=== PATIENT | female | born 1960 | race Caucasian/White ===

== ENCOUNTER 2017-07-24 13:04 | Emergency (ER) | payer BC ==
[~2017-07-24] VITALS: Ht 162.6 cm; Wt 74.0 kg
[~2017-07-24 13:04] MED LIST: PRED5TAB PO
[2017-07-24] MEDS ORDERED: aspirin 81mg tab.chew PO ONE (13:10)
[2017-07-24] MEDS ORDERED: LEVO125T8 PO (13:26)
[2017-07-24] MEDS ORDERED: VAL5T PO ×2 (13:26→15:02)
[2017-07-24] MEDS ORDERED: ATOR20TA PO (13:26)
[2017-07-24 13:28] LABS: BASOPHILS % (AUTO) 0.5 % (0-1); EOSINOPHILS # (AUTO) 0.1 X10'3 (0-0.9); EOSINOPHILS % (AUTO) 1.5 % (0-6); HEMATOCRIT 36.6 % (35.0-45.0); HEMOGLOBIN 12.9 g/dl (12.0-16.0); LYMPHOCYTES # (AUTO) 1.6 X10'3 (1.1-4.8); LYMPHOCYTES % (AUTO) 33.4 % (21-51); MEAN CORPUSCULAR HEMOGLOBIN 28.6 PG (27.0-31.0); MEAN CORPUSCULAR HGB CONC 35.2 % (33.0-36.5); MEAN CORPUSCULAR VOLUME 81.2 FL (78-98); MEAN PLATELET VOLUME 7.4 FL (7.4-10.4); MONOCYTES # (AUTO) 0.3 X10'3 (0-0.9); MONOCYTES % (AUTO) 5.6 % (2-12); NEUTROPHILS # (AUTO) 2.8 X10'3 (1.8-7.7); PLATELET COUNT 280 X10'3 (140-440); RED BLOOD COUNT 4.51 X10'6 (4.20-5.60); RED CELL DISTRIBUTION WIDTH 13.8 % (11.5-14.5); WHITE BLOOD COUNT 4.7 X10'3 (4.5-11.0)
[2017-07-24 13:52] LABS: ALANINE AMINOTRANSFERASE 32 U/L (12-78); ALBUMIN 4.2 G/DL (3.4-5.0); ALBUMIN/GLOBULIN RATIO 1.2 (1.1-1.5); ALKALINE PHOSPHATASE 75 IU/L (46-116); ANION GAP 9 (8-16); ASPARTATE AMINO TRANSFERASE 19 U/L (10-37); BILIRUBIN,TOTAL 0.3 MG/DL (0.1-1.0); BLOOD UREA NITROGEN 12 MG/DL (7-18); BUN/CREATININE RATIO 15.6 (6.6-38.0); CALCIUM 9.5 MG/DL (8.5-10.1); CHLORIDE 107 MMOL/L (99-107); CREATININE 0.77 MG/DL (0.40-0.90); GLUCOSE 88 MG/DL (70-104); MAGNESIUM 2.2 MG/DL (1.5-2.4); POTASSIUM 4.2 MMOL/L (3.5-5.1); SODIUM 145 MMOL/L (135-145); TOTAL CARBON DIOXIDE 28.6 MMOL/L (24-32); TOTAL PROTEIN 7.8 G/DL (6.4-8.2); eGFR 78 ML/MIN
[2017-07-24] MEDS ORDERED: VALA100027 PO (14:49)
[2017-07-24] MEDS ORDERED: PRED20TA PO (14:49)
[2017-07-24 15:09] VITALS: BP 169/87
== END 2017-07-24 15:11 | disposition home or self-care (01) ==
LOC: ER 13:05
DX: G51.0 Bell's palsy (principal); R07.89 Other chest pain; I10 Essential (primary) hypertension; E03.9 Hypothyroidism, unspecified
CPT/HCPCS: 36415; 71045; 80053; 83735; 83880; 84484; 85025; 93005; 99285

== ENCOUNTER 2025-02-09 10:45 | Inpatient (IN) | payer BC ==
[~2025-02-09] VITALS: Ht 162.6 cm; Wt 59.9 kg
[~2025-02-09 10:45] MED LIST changes: +ATOR20TA PO; +DIAZ5TAB22 PO; +LEVO125T8 PO; -PRED5TAB PO; +VALA100031 PO
--- NOTE | 2025-02-09 11:10 | ELECTROCARDIOGRAPH REPORT ---
[facility] Test Date: 2025-02-09 Test Time: 11:08:45 Pat Name: DOMINIQUE CUI Department: [facility]ER Patient ID: [facility]-[id number] Room: Gender: F [employer]: : 1960 Requested By: NED THOMASON Order Number: [id number] Reading MD: Measurements Intervals [place] Rate: 75 P: 81 W[place]: 165 QRS: 50 QRSD: 90 T: -8 QT: 401 QTc: 448 Interpretive Statements Sinus rhythm Borderline T abnormalities, inferior leads Please click the below link to view image of tracing.
--- NOTE | 2025-02-09 11:16 | RADIOLOGY REPORT ---
EXAM: CT CT STROKE ALERT INDICATION: Stroke Alert TECHNIQUE: CT of the head without intravenous contrast. Radiation Dose : 1. Head: CT Dose: CTDI volume is 59 mGy. Dose-length product 163 mGy*cm The dose indicators for CT are the volume Computed Tomography (CT) Dose Index (CTDIvol) and the Dose Length Product (DLP), and are measured in units of mGy and mGy-cm, respectively. These indicators are not patient dose, but values generated from the CT scanner acquisition factors. The report includes radiation exposure data for exposures received during this examination. COMPARISON: None FINDINGS: There is no evidence of acute intracranial hemorrhage, extra-axial collection, mass effect, midline shift, herniation or hydrocephalus. The ventricles, sulci and cisterns are age appropriate. The pineda-white differentiation is intact. The visualized paranasal sinuses and mastoid air cells are clear. The surrounding soft tissues and osseous structures are unremarkable. IMPRESSION: No acute intracranial abnormality. Radiation optimization: All CT scans at this facility use at least one of these dose optimization techniques: automated exposure control? mA and/or kV adjustment per patient size (includes targeted exams where dose is matched to clinical indication)? or iterative reconstruction.
[2025-02-09 11:40] LABS: CREATININE 0.78 MG/DL (0.40-0.90); TOTAL CARBON DIOXIDE 27.6 MMOL/L (24-32); eCRCL 64 ML/MIN; eGFR 75 ML/MIN
[2025-02-09 11:42] LABS: APTT 28 SECONDS (22-32); INR 1.0 INR; MEAN PLATELET VOLUME 7.1 FL (7.4-10.4); RED CELL DISTRIBUTION WIDTH 14.5 % (11.5-14.5)
--- NOTE | 2025-02-09 11:49 | RADIOLOGY REPORT ---
AP portable chest CLINICAL INDICATION: Stroke Alert FINDINGS: Heart size is slightly prominent with a left ventricular configuration. The aorta is tortuous. No infiltrates or effusions. Mild degenerative changes in the spine IMPRESSION: 1. No acute cardiopulmonary pathology
[2025-02-09] MEDS: clopidogrel 300mg tablet PO ONE (11:56)
--- NOTE | 2025-02-09 12:37 | RADIOLOGY REPORT ---
CT CTA NECK/HEAD INDICATION: Stroke TECHNIQUE: CT angiography along with MIP and MPR images were obtained of the [place] of [place] arteries. CT angiography along with MIP and MPR images were obtained of the cervical carotid and vertebral arteries. All CT scans at this facility use dose modulation, iterative reconstruction, and/or weight based dosing when appropriate to reduce radiation dose to as low as reasonably achievable. 3-D postprocessing was performed on a separate workstation under radiologist supervision. IV CONTRAST: 100 mL of low osmolar intravenous iodinated contrast material was administered. COMPARISON: None FINDINGS: ANTERIOR CIRCULATION: Distal internal carotid arteries including the petrous, cavernous, and supraclinoid segments are patent bilaterally. Anterior cerebral arteries including the A1 and A2 segments are patent bilaterally. Anterior communicating artery patent without aneurysm formation. Middle cerebral arteries including the horizontal M1 and sylvian M2 are patent bilaterally. Congenitally absent versus hypoplastic posterior communicating arteries. POSTERIOR CIRCULATION: Posterior cerebral arteries are patent bilaterally. Vertebral arteries are codominant The intracranial segments of the vertebral arteries are patent bilaterally. The basilar artery is patent without aneurysm formation. The posterior inferior cerebellar arteries are patent bilaterally. CERVICAL VESSELS: The thoracic aortic arch is patent without evidence of aneurysmal dilatation or dissection. The right common carotid artery, carotid bulb, and cervical segment of the right internal carotid artery are patent The left common carotid artery, carotid bulb, and cervical segment of the left internal carotid artery are patent The cervical segments of the right vertebral artery are patent OTHER: The lung apices are clear. IMPRESSION: 1. No large vessel occlusion, aneurysmal dilatation, or dissection seen within the intracranial vessels. 2. No hemodynamically significant stenosis, aneurysmal dilatation, or dissection seen within the cervical vessels.
--- NOTE | 2025-02-09 12:49 | [facility] CONSULT REPORT ---
[facility] Procedure Note [facility] Procedure Note Consult [facility] Note # Demographics Consult Type: Acute Stroke Level 2 (4.5-24 hrs) Patient Location: Emergency Room First Name: DOMINIQUE Last Name: BASILIA Date of : 1960 Age: 64 Gender: Female Facility: [facility] Time of Initial Page (): 02/09/2025 11:08 First Contact with Site (): 02/09/2025 11:08 # HPI Chief Complaint: - vision changes History: 64yof with HTN who p/w R eye vision peripheral field changes. She says yesterday she was helping her daughter move and she began profusely sweating, she felt funny, and then felt that she lost R vision. Was only seeing half of people faces She also had a headache at that time. This has now resolved. SBP 190. Last Known Normal: - I have collected independent history specific to time last normal or last known well. We have collaborated with the provider and at this time, we have the most current timeline with the information that is available. 12:30PM yesterday afternoon # Scores Time of exam and NIHSS (): 02/09/2025 11:12 Level of Consciousness 1a: [0] = Alert; keenly responsive LOC Questions 1b: [0] = Answers both questions correctly LOC Commands 1c: [0] = Performs both tasks correctly Best Gaze 2: [0] = Normal Visual 3: [0] = No visual loss Facial Palsy 4: [0] = Normal symmetrical movements Motor Arm Left 5a: [0] = No drift Motor Arm Right 5b: [0] = No drift Motor Leg Left 6a: [0] = No drift Motor Leg Right 6b: [0] = No drift Limb Ataxia 7: [0] = Absent Sensory 8: [0] = Normal Best Language 9: [0] = No aphasia Dysarthria 10: [0] = Normal Extinction and Inattention 11: [0] = No abnormality NIHSS Total: 0 # Data Head CT: - no bleed - per radiologist read CTA Head: - no large vessel occlusion - per radiologist read # Assessment Impression: - Transient Ischemic Attack # Plan Thrombolytic/Intervention: NOT IV Thrombolysis or IA Intervention candidate Thrombolytic Exclusion: > 4.5 hours Intraarterial Exclusion: - clinical exam not consistent with presence of large vessel occlusion (LVO), c an reconsider if LVO found on vascular imaging Blood Pressure Management: Use labetolol 10-20mg IV PRN or nicardipine gtt to maintain BP parameters Target Blood Pressure: - SBP < 220 - DBP < 120 Imaging: (urgency: STAT): - CT Angiogram Head and CT Angiogram Neck AND call back with results if abnormal Imaging: (urgency: routine): - MRI Brain without contrast Diagnostic Test: - echo with bubble study Telemetry for a fib monitoring Therapy/Evaluation: - PT/OT evaluation - speech/swallow consultation - NPO until swallow evaluation Medication: - Plavix 300 mg PO x1 now, then 75 mg daily x 21 days + asa 81mg x 21 days, followed by monotherapy thereafter atorvastatin 80mg daily, goal LDL <70 Other: - If patient has any neurological deterioration please call me back immediately Additional Recommendations: - Avoid dehydration and relative hypotension - Risk factor modification, including smoking cessation and alcohol moderation if appropriate - Monitor glucose and correct as needed - If cryptogenic non-lacunar stroke on MRI, obtain outpatient cardiac monitoring for a fib - Call back for neurological deterioration Disposition: admit # Logistics Attestation of consult completion: The patient is located at: [facility]. Facility staff participated in the visit. I performed this telemedicine visit from my offsite office utilizing interactive 2 way audio and visual telecommunication technology at the request of the onsite emergency room provider. Total time spent in telemedicine encounter: I spent 23 minutes reviewing clinical data and/or imaging, obtaining history, examining the patient, communicating with the onsite care team, and in preparation of this report. # Demographics First Name: DOMINIQUE Last Name: BASILIA Facility: [facility] Neuro Consult Order placed for: Yes YEN ARAUJO MD Feb 09, 2025 12:49
--- NOTE | 2025-02-09 13:35 | Physician Documentation ---
History of Present Illness ~ Chief Complaint: Stroke Alert Stated Complaint: BLURRY VISION,HEADACHE Time Seen by MD: 10:50 Primary Medical Doctor: None Source: patient Mode of Arrival: POV Exam Limitations: no limitations HPI Patient presented secondary to stroke-like symptoms. She was seen and examined in triage. She complains that yesterday her right eye was completely black. She was looking at people and only able to see half of the face. While on the way to the emergency department her vision suddenly cleared but with remained blurry. Decided not to go to the emergency department at that time. Her vision remains blurry and she has a headache prompting her to come to the emergency department. States past medical history of hypertension was seen by Dr. De La Torre in the past for this. Her blood pressure improved with weight loss. She also had an elevated hemoglobin A1c which also improved with weight loss. 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 Currently, complaining of blurry vision in the right eye and headache in the anterior head described as ache. Medication Reconciliation Allergies: Coded Allergies: No Known Allergies (Unverified , 02/09/25) Scheduled Atorvastatin Calcium* (Lipitor*), 1 TABLET PO HS, (Reported) Levothyroxine Sodium (Levothyroxine Sodium), 1 TAB PO DAILY, (Reported) Valacyclovir HCl (Valacyclovir), 1 TAB PO Q8H Scheduled PRN Diazepam* (Valium*), 1 TAB PO DAILY PRN for for anxiety/agitation, (Reported) Past Medical History Past Medical History: *WARDROBE MISTRESS* (Rios's palsy), Hypertension, Hypothyroidism, Anxiety Past Surgical History: noncontributory Other Past Surgical History: Tubal ligation Smoking Status: Never smoker Alcohol Use: None Drug Use: none Lives with: Family Lives In: Home Occupation: employed Review of Systems ROS Patient complains of right-sided blurry vision with completely held blacked out vision yesterday. She complains of elevated blood pressure which is unusual for her as well as a headache. No sensory deficits. Normal strength. Otherwise, denies review of systems. Physical Exam Vital Signs: RN Vital Signs have been reviewed: Yes, Temperature: 97.9, Source: Oral, Heart Rate: 74, Respiratory Rate: 14, BP: 167/88, Pulse Oximetry: 98, Weight: 59.900 Oxygen Flow Rate: 0 Pulse Oximetry Reflects: adequate oxygenation General Appearance: alert, WD/WN Pupils/EOM/Fundus: PERRLA EENT: normal ENT inspection Neck: normal inspection, full range of motion Respiratory: lungs clear, normal breath sounds, no respiratory distress Chest: no accessory muscle use Cardiovascular: normal peripheral pulses, regular rate, rhythm, no murmur Gastrointestinal: normal palpation, non-tender, bowels sounds present Orientation / Memory / CN Exam: oriented x3, memory intact, facial asymmetry; No: abnormal pupil position, abnormal speech Motor / Sensory: no motor deficit, no sensory deficit, no pronator drift Coordination / Gait: normal finger to nose, normal gait, negative Romberg's sign Psychiatric: appropriate Skin: warm/dry, normal color Progress Progress Note Tele neurology consultation was obtained. Discussed with the neurologist. Recommend CTA of the head and neck and if vessels are okay admission for MRI and TTE with bubble study. Permissive hypertension for the next 24 hours allowing blood pressure up to 220/120. Recommended Plavix 300 mg x 1 and aspirin 81 mg Results/Orders Results/Orders Orders - JIM KAMINSKI NP Cta Neck/Head (02/09/25 12:18) Page Hospitalist (02/09/25 13:41) Fill Out Med Reconciliation (02/09/25 13:41) Completed Orders - JIM KAMINSKI NP Cta Neck/Head (02/09/25 12:18) Clopidogrel Tablet (Plavix Tablet) (02/09/25 11:35) Aspirin 81mg Chew Tablet (Aspirin 81mg C (02/09/25 11:35) Iohexol 350mg/Ml 100ml (Omnipaque 350mg/ (02/09/25 11:55) Acetaminophen 325mg Tablet (Tylenol Tabl (02/09/25 13:40) Medications Received in ER Medications (Trade) Dose Ordered Sig/[place]olin Route PRN Reason Start Time Stop Time Status Last Admin Dose Admin (Plavix tablet) 300 mg ONCE ONCE PO 02/09/25 11:35 02/09/25 11:36 DC 02/09/25 11:56 300 MG (aspirin 81MG chew tablet) 81 mg ONCE ONCE PO 02/09/25 11:35 02/09/25 11:36 DC 02/09/25 11:56 81 MG (Tylenol tablet) 650 mg ONCE ONCE PO 02/09/25 13:40 02/09/25 13:41 DC 02/09/25 13:57 650 MG Vital Signs 02/09/25 02/09/25 02/09/25 02/09/25 10:48 11:11 11:33 11:47 Temp 97.2 Pulse 81 90 82 75 Resp 18 16 16 16 B/P (MAP) 170/109 198/126 (150) 155/105 148/89 Pulse Ox 100 98 99 99 O2 Flow Rate 0 0 02/09/25 02/09/25 02/09/25 12:00 12:08 12:46 Pulse 85 74 Resp 16 14 B/P (MAP) 148/95 167/88 (114) Pulse Ox 99 98 O2 Flow Rate 0 Laboratory Tests Test 02/09/25 11:00 02/09/25 11:23 Glucometer 87 White Blood Count 5.2 Red Blood Count 4.80 Hemoglobin 13.3 Hematocrit 40.1 Mean Corpuscular Volume 83.5 Mean Corpuscular Hemoglobin 27.8 Mean Corpuscular Hemoglobin Concent 33.3 Red Cell Distribution Width 14.5 Platelet Count 315 Mean Platelet Volume 7.1 L Neutrophils (%) (Auto) 60.5 Lymphocytes (%) (Auto) 34.1 Monocytes (%) (Auto) 3.8 Eosinophils (%) (Auto) 0.9 Basophils (%) (Auto) 0.7 Neutrophils # (Auto) 3.2 Lymphocytes # (Auto) 1.8 Monocytes # (Auto) 0.2 Eosinophils # (Auto) 0.0 Basophils # (Auto) 0.0 CBC Comment Prothrombin Time 10.3 INR International Normalized Ratio 1.0 Activated Partial Thromboplast Time 28 Coagulation Comments Sodium Level 143 Potassium Level 3.8 Chloride Level 106 Carbon Dioxide Level 27.6 Anion Gap 9 Blood Urea Nitrogen 14 Creatinine 0.78 Estimated GFR/1.73 m2 75 BUN/Creatinine Ratio 17.9 Glucose Level 85 Calcium Level 9.4 Albumin 4.3 Chemistry Comments EKG/XRAY/CT/US/VASC/MRI EKG : Intepreting Monitor?: Yes Indication: stroke/TIA EKG: NSR EKG Blocks: none [place]: normal Hypertrophy: none Additional Comment EKG time 1108. Sinus rhythm rate of 75. T-wave inversion in lead three. No acute ST changes. Chest X-Ray : Interpreted By: both Views: 1 VIEW Lungs: normal Mediastinum: normal Ribs/Bones: normal Abdomen: normal Impression: no acute disease Additional Comments [place] [id number] DIAGNOSTIC RADIOLOGY Patient: DOMINIQUE CUI Medical Record: [id number] [facility] : 1960, Age: 64 Sex: Female Location: ER Patient Status: [facility] ER Service Date/Time: 02/09/25/ 1058 Ordering Physician: NED THOMASON MD Exam: CHEST,SINGLE VIEW AP portable chest CLINICAL INDICATION: Stroke Alert FINDINGS: Heart size is slightly prominent with a left ventricular configuration. The aorta is tortuous. No infiltrates or effusions. Mild degenerative changes in the spine IMPRESSION: 1. No acute cardiopulmonary pathology Electronically Signed by:BETO CASTRO MD Date & Time: 02/09/25 114 Dictated by: BETO CASTRO MD Dictation date and time: 02/09/25 1140 Primary Care Provider: NO PRIMARY CARE PROVIDER cc: NED THOMASON MD ~ CT : Interpreted By: radiologist CT: head Impression [address] [id number] CAT SCAN Patient: DOMINIQUE CUI Medical Record: [id number] [facility] : 1960, Age: 64 Sex: Female Location: ER Patient Status: REG ER Service Date/Time: 02/09/25/ 1105 Ordering Physician: NED THOMASON MD Exam: CT STROKE ALERT EXAM: CT CT STROKE ALERT INDICATION: Stroke Alert TECHNIQUE: CT of the head without intravenous contrast. Radiation Dose : 1. Head: CT Dose: CTDI volume is 59 mGy. Dose-length product 163 mGy*cm The dose indicators for CT are the volume Computed Tomography (CT) Dose Index (CTDIvol) and the Dose Length Product (DLP), and are measured in units of mGy and mGy-cm, respectively. These indicators are not patient dose, but values generated from the CT scanner acquisition factors. The report includes radiation exposure data for exposures received during this examination. COMPARISON: None FINDINGS: There is no evidence of acute intracranial hemorrhage, extra-axial collection, mass effect, midline shift, herniation or hydrocephalus. The ventricles, sulci and cisterns are age appropriate. The pineda-white differentiation is intact. The visualized paranasal sinuses and mastoid air cells are clear. The surrounding soft tissues and osseous structures are unremarkable. IMPRESSION: No acute intracranial abnormality. Radiation optimization: All CT scans at this facility use at least one of these dose optimization techniques: automated exposure control? mA and/or kV adjustment per patient size (includes targeted exams where dose is matched to clinical indication)? or iterative reconstruction. Electronically Signed by:ED QUINTANA MD Date & Time: 02/09/251113 Dictated by: ED QUINTANA MD Dictation date and time: 02/09/251113 Primary Care Provider: NO PRIMARY CARE PROVIDER cc: NED THOMASON MD ~ [address] [address] CAT SCAN Patient: DOMINIQUE CUI Medical Record: [id number] [facility] : 1960, Age: 64 Sex: Female Location: ER Patient Status: REG ER Service Date/Time: 02/09/258 Ordering Physician: JIM KAMINSKI NP Exam: CTA NECK/HEAD CT CTA NECK/HEAD INDICATION: Stroke TECHNIQUE: CT angiography along with MIP and MPR images were obtained of the [place] of [place] arteries. CT angiography along with MIP and MPR images were obtained of the cervical carotid and vertebral arteries. All CT scans at this facility use dose modulation, iterative reconstruction, and/or weight based dosing when appropriate to reduce radiation dose to as low as reasonably achievable. 3-D postprocessing was performed on a separate workstation under rad iologist supervision. IV CONTRAST: 100 mL of low osmolar intravenous iodinated contrast material was administered. COMPARISON: None FINDINGS: ANTERIOR CIRCULATION: Distal internal carotid arteries including the petrous, cavernous, and supraclinoid segments are patent bilaterally. Anterior cerebral arteries including the A1 and A2 segments are patent bilaterally. Anterior communicating artery patent without aneurysm formation. Middle cerebral arteries including the horizontal M1 and sylvian M2 are patent bilaterally. Congenitally absent versus hypoplastic posterior communicating arteries. POSTERIOR CIRCULATION: Posterior cerebral arteries are patent bilaterally. Vertebral arteries are codominant The intracranial segments of the vertebral arteries are patent bilaterally. The basilar artery is patent without aneurysm formation. The posterior inferior cerebellar arteries are patent bilaterally. CERVICAL VESSELS: The thoracic aortic arch is patent without evidence of aneurysmal dilatation or dissection. The right common carotid artery, carotid bulb, and cervical segment of the right internal carotid artery are patent The left common carotid artery, carotid bulb, and cervical segment of the left internal carotid artery are patent The cervical segments of the right vertebral artery are patent OTHER: The lung apices are clear. IMPRESSION: 1. No large vessel occlusion, aneurysmal dilatation, or dissection seen within the intracranial vessels. 2. No hemodynamically significant stenosis, aneurysmal dilatation, or dissection seen within the cervical vessels. Electronically Signed by:JUWAN LUU MD Date & Time: 02/09/25 1235 Dictated by: JUWAN LUU MD Dictation date and time: 02/09/25 1235 Primary Care Provider: NO PRIMARY CARE PROVIDER cc: KANDYBE,JIM A FINISHING MACHINE TENDER ~ Medical Decision Making Findings Patient has past medical history is significant for hypertension, Rios's palsy. Had history of elevated hemoglobin A1c in the past but is improved with weight loss. Denies other medical history at this time. No history of CVA, [place] or any other cardiac condition. Denies palpitations or history of atrial fibrillation. Patient presented secondary to blurred vision and loss of vision yesterday. Concern for CVA. Underwent a noncontrast CTA head which was negative for acute hemorrhage. She underwent Neurology evaluation who gave several recommendations including a CTA of the head and neck which was performed. There is no large vessel occlusion and no significant carotid artery stenosis. Therefore, Neurology recommends MRI and TTE with bubble study. Also recommends permissive hypertension, Plavix and aspirin which were given. Patient continues to have blurred vision. Other neurology exam was relatively benign other than her left- sided facial droop which is chronic from her secondary to Rios's palsy. Her blood pressure was initially quite elevated though has come down with no intervention. Her EKG showed nonspecific T-wave abnormality with T-wave inversion in lead three. No clinical suspicion for ACS given lack of chest pain. Case was reviewed with supervising physician, Dr. Thomason. Case was reviewed with the hospitalist service, resident Dr. Flaherty who agrees to evaluate patient for admission. Differential Dx:Considerations: Include: Rios's [place], CVA, Electrolyte imbalance, Encephalopathy, Hypoxemia, Hypoglycemia, Mass lesion, Subarachnoid H emorrhage, TIA Departure Disposition: 09 ADMITTED INPATIENT Admission Level of Care: Neuro with Tele Impression: Primary Impression: Hypertension Qualified Codes: I10 - Essential (primary) hypertension Additional Impressions: History of Rios's palsy Blurry vision CVA (cerebral vascular accident) Qualified Codes: I63.9 - Cerebral infarction, unspecified Referrals: NO PRIMARY CARE PROVIDER (PCP) Signature Scribe Signature: No scribe Attestation: The note accurately reflects work and decisions made by me.Jim Kaminski - K[place] 02/09/25 15:17 This note was created with the assistance of voice recognition software whereby errors in grammar, syntax, and/or spelling may have occurred despite active proofreading efforts by the author. Please do not hesitate to contact the provider for clarification or for questions regarding the content of this document. JIM KAMINSKI FINISHING MACHINE TENDER Feb 09, 2025 13:35
[2025-02-09] MEDS ORDERED: magnesium hydroxide 30ml (MOM) UD suspension PO PRN (14:10)
[2025-02-09] MEDS ORDERED: potassium Cl 40MEQ/1/2NS 520ml 520 ML IV PRN (14:10)
[2025-02-09] MEDS ORDERED: magnesium Cl slow-release 64mg tablet PO PRN (14:10)
[2025-02-09] MEDS ORDERED: ondansetron/PF 4mg/2ml inj IV PRN (14:10)
[2025-02-09] MEDS ORDERED: magnesium sulf-water 4G/100mL 100 ML IV PRN (14:10)
[2025-02-09] MEDS ORDERED: mag hydrox/Alum hydrox/simeth 30ml oral suspension PO PRN (14:10)
[2025-02-09] MEDS ORDERED: magnesium sulf-water 2g/50mL 50 ML IV PRN (14:10)
[2025-02-09] MEDS ORDERED: potassium Cl 20 mEq SR tablet PO PRN ×2 (14:10)
[2025-02-09] MEDS: PERFLUTREN PROTEIN-A MICROSPHR (Optison) 0.22 MG/ML 3ML VIAL IV ONE (14:19)
[2025-02-09 14:43] LABS: LEUKOCYTE ESTERASE ,URINE NEGATIVE (Neg); NITRITES, URINE NEGATIVE (Neg); OCCULT BLOOD,URINE NEGATIVE (Neg)
[2025-02-09 14:44] LABS: UA COLLECTION TYPE CLN CATCH MIDSTREAM
[2025-02-09 15:36] LABS: CHOL/HDL RATIO 3.0 (0.00-4.99); LDL CHOLESTEROL 127 MG/DL (50-100)
--- NOTE | 2025-02-09 15:40 | HISTORY AND PHYSICAL-Residence ---
History & Physical Providers to CC Resident Creating Document: MARYJO CHAND RES CC: RICHAR LEMON MD ~ History of Present Illness Primary Medical Doctor: None Reason for Admit\Complaint: Right eye vision loss since yesterday History of Present Illness 64-year-old female with past medical history of hypertension, prediabetes, hypothyroidism presented to the ER with a chief complaints of sudden-onset right-sided vision loss at around 12:30 p.m. on 02/08/2025. Patient was in her usual state of health but for the past three days she was having headache which she described as dull, constant, pressure-like over the frontal area of the head, not radiating, not associated with phonophobia, photophobia no nausea or vomitings. Yesterday she was trying to help for the daughter moved to a new home and during that process she felt hot extremely fatigued and at around 12:00 p.m. she had sudden onset of right-sided vision loss. She was able to see the left half of people faces but not the right hope. The same time she felt winded down tired and experienced drinks sensation in her ear. Due to these complaints she came to the ER yesterday but felt like the ER was busy and left. Then she slept and within 30 minutes to 1 hour her vision got improved. Currently she is having blurring of vision. She denies loss of consciousness weakness of any extremities or new onset facial palsy. Allergies: Coded Allergies: No Known Allergies (Unverified , 02/09/25) Home Medications Home Medications Active Valacyclovir (Valacyclovir HCl) 1,000 Mg Tablet 1 Tab PO Q8H 7 Days Reported Lipitor* (Atorvastatin Calcium) 20 Mg Tablet 1 Tablet PO HS Levothyroxine Sodium 125 Mcg Tablet 1 Tab PO DAILY 30 Days Valium* (Diazepam) 5 Mg Tablet 1 Tab PO DAILY PRN Past Medical History Past Medical History Hypotension, was on lisinopril at one point but then discontinued Hypothyroidism was on levothyroxine 200 mcg were discontinued for the past few months. Previously on follow up with Dr. Bloom. Prediabetes/obesity was on Tirzepatide, and then dced since november 2024 She had 60 lb weight loss. Hepatitis-C treated Stress and anxiety was on diazepam and then discontinued Past Surgical History Surgical History Comment Tubal ligation Family History Family History: Breast cancer in mother Prostate cancer in father Past Social History Social History Comment Remote history of smoking when she was a teen. No further history of smoking No history of alcohol abuse. Denies illicit drug use Retired COMMERCIAL SALES DIRECTOR Lives with her family Alcohol Use: None Drug Use: None Lives with: Family Lives In: Home Occupation: employed ROS ROS ROS Constitutional: Complaining of shoulder pain, fatigue, voluntary weight loss HEENT: No blurring of the vision, No sore throat, epistaxis, tinnitus Cardiovascular: No chest pain/discomfort, palpitations, syncope. No pedal edema Respiratory: No sob, cough,, hemoptysis Gastrointestinal: No abdominal pain, nausea, vomiting. No diarrhea, constipation, melena. Genitourinary: No frquency, urgency, incontinence, nocturia. No dysuria, hematuria Musculoskeletal: No arthralgia, myalgia Endocrine: No fatigue, polydipsia, polyuria. No heat or cold intolerance Neurologic: Complaining of headache, tinnitus, no vertigo. No weakness, numbness or tingling of extremities Psychiatric: No hallucinations/delusions, no anhedonia, no suicidal ideation\ Hematologic: No bleeding or bruises Reviewed in full. All negative except for pertinent positives in HPI Exam Vitals: Vital Signs Date Time Temp Pulse Resp B/P (MAP) Pulse Ox O2 Delivery O2 Flow Rate FiO2 02/09/25 12:46 74 14 167/88 (114) 98 0 02/09/25 10:48 97.2 General: General: Pleasant elderly female, AAO x4, not in apparent distress Head: Normocephalic with an atraumatic Eyes: Pupils- 3mm, reacting to light, conjunctiva- anicteric Nose and throat: No polyps, septum- normal, no mucosal ulcers Neck: Supple, no lymphadenopathy, no carotid bruit Respiratory: No use of accessory muscles of respiration, Bilateral normal vesiscular breath sounds heard. No wheeze, rhochi or creps Cardiac: S1-S2 heard, rythm regular, no gallop/murmur Abdomen: non distended, no tenderness, no organomegaly, bowel sounds- heard Extremities: no clubbing, no pedal edema, no deformities, peripheral pulses- 2+ Skin: warm and dry, no rash, no purpura Neuro: Left elimination facial palsy, vision normal in both eyes, bilateral pupils normal in size reactive to light, extraocular movements full, no tongue fasciculations, able to shrug both shoulders, power 5 x 5 in all extremities No focal deficit, Diagnostic Data Last Recorded Lab Results: 02/09/25 1123 02/09/25 1123 Diagnostic Data: Laboratory Tests Test 02/09/25 11:23 Prothrombin Time 10.3 SECONDS (9.0-12.0) INR International Normalized Ratio 1.0 INR Activated Partial Thromboplast Time 28 SECONDS (22-32) Coagulation Comments Advance Care Planning Advanced Care plannin - 30 Minutes (Code status is discussed with her and she opted for full code) Additional Plan 64-year-old female with past medical history of hypertension, hypothyroidism, prediabetes (not on medications for these conditions) presented to the ER with chief complaints of right eye vision loss at around noon on 02/08/2025. Vision loss was sudden, improved within 30 minutes to 1 hour. Currently she is having blurring of vision. Right eye vision loss Suspect secondary to amaurosis fugax/TIA/occipital infarct/Giant cell arteritis -CT brain no bleed -CTA head and neck- no acute vessel occlusion -follow up on MRI has been noncontrast to look for infarct -follow up on 2D echo to look for thrombus/pfo -tele neurology consulted. Recommended Plavix 300 mg loading dose followed by aspirin 81 mg and Plavix 75 mg for 28 days followed by monotherapy thereafter -received Plavix 300 mg in the ER -started on aspirin 81 mg and Plavix 75 mg from tomorrow morning -started on atorvastatin 80 mg from tomorrow morning however patient is reluctant to take statin. Goal of LDL less than 70 -follow up on lipid panel, A1c, ESR -recommended permissive hypertension <210/<120 for about 24 hours -needs outpatient ophthalmology consult, outpatient loop recorder monitoring for an occult AFib -neuro checks, ST/PT -since patient is having headache follow up on ESR to rule out giant cell arteritis. Started on acetaminophen 650 mg q.6 p.r.n. 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
[2025-02-09 16:35] VITALS: BP 182/108; PULSE 79; RESP 14; TEMP 98.9; O2SAT 100
[2025-02-09] MEDS: ibuprofen tablet 400 MG TABLET PO ONE (16:45)
[2025-02-09 16:50] VITALS: RESP 16; O2SAT 99
[2025-02-09 16:59] VITALS: BP 165/94
[2025-02-09] MEDS: K and/or MAG REPLACEMENT MC SCH (19:15)
--- NOTE | 2025-02-09 20:23 | RADIOLOGY REPORT ---
[facility] EXAMINATION: MR MRI HEAD INDICATION: Right eye vision loss COMPARISON: CT CTA NECK/HEAD on DOS: 02/09/25, CT CT STROKE ALERT on DOS: 02/09/25 TECHNIQUE: Multiplanar, multisequence magnetic resonance imaging of the brain was performed without the use of intravenous contrast. FINDINGS: No evidence of acute or remote infarct. No intracranial hemorrhage. No mass effect. There is periventricular/deep white matter T2/FLAIR hyperintensity which is nonspecific, but most commonly associated with chronic microvascular disease. The ventricles and sulci are normal in size for age. Clear basal cisterns. Flow voids in the major intracranial vessels are maintained. No abnormality of the orbits. Paranasal sinuses and mastoid air cells are clear. No abnormality of the visualized osseous structures and extracranial soft tissues. IMPRESSION: 1. No acute territorial infarct, intracranial hemorrhage, or mass effect. 2. Mild chronic microvascular changes.
[2025-02-09] MEDS: docusate sod 100mg capsule PO SCH (20:30)
[2025-02-09 22:00] VITALS: BP 161/80; PULSE 78; RESP 15; TEMP 97.8; O2SAT 98
[2025-02-10 02:00] VITALS: BP 119/74; PULSE 69; RESP 18; TEMP 97.8; O2SAT 93
[2025-02-10 05:37] LABS: MEAN PLATELET VOLUME 6.9 FL (7.4-10.4); RED CELL DISTRIBUTION WIDTH 14.2 % (11.5-14.5)
[2025-02-10 06:00] VITALS: BP 141/72; PULSE 85; RESP 18; TEMP 98.1; O2SAT 98
[2025-02-10 06:02] LABS: CREATININE 0.65 MG/DL (0.40-0.90); TOTAL CARBON DIOXIDE 28.0 MMOL/L (24-32); eCRCL 77 ML/MIN; eGFR > 90 ML/MIN
[2025-02-10] MEDS ORDERED: HYDROcodone/acetaminophen 5mg/325mg tablet PO ONE (06:05)
[2025-02-10] MEDS ORDERED: enoxaparin 40mg/0.4ml syringe SUBCUT SCH (08:00)
--- NOTE | 2025-02-10 10:51 | DISCHARGE SUMMARY-Residence ---
Discharge Summary Providers to CC Resident Creating Document: GROVER LERNER RES ~ Discharge Summary Admission Diagnosis: CVA/TIA Hospital Course DATE OF ADMISSION: 02/09/2025 DATE OF DISCHARGE: 02/10/[address]: No acute intracranial abnormality. Head/Neck CTA: 1. No large vessel occlusion, aneurysmal dilatation, or dissection seen within the intracranial vessels. 2. No hemodynamically significant stenosis, aneurysmal dilatation, or dissection seen within the cervical vessels. Head MRI: 1. No acute territorial infarct, intracranial hemorrhage, or mass effect. 2. Mild chronic microvascular changes. Laboratory Tests Test 02/09/25 11:00 02/09/25 11:23 02/09/25 14:30 02/09/25 15:40 Glucometer 87 mg/dl White Blood Count 5.2 X10'3 Red Blood Count 4.80 X10'6 Hemoglobin 13.3 g/dl Hematocrit 40.1 % Mean Corpuscular Volume 83.5 FL Mean Corpuscular Hemoglobin 27.8 PG Mean Corpuscular Hemoglobin Concent 33.3 g/dL Red Cell Distribution Width 14.5 % Platelet Count 315 X10'3 Mean Platelet Volume 7.1 FL Neutrophils (%) (Auto) 60.5 % Lymphocytes (%) (Auto) 34.1 % Monocytes (%) (Auto) 3.8 % Eosinophils (%) (Auto) 0.9 % Basophils (%) (Auto) 0.7 % Neutrophils # (Auto) 3.2 X10'3 Lymphocytes # (Auto) 1.8 X10'3 Monocytes # (Auto) 0.2 X10'3 Eosinophils # (Auto) 0.0 X10'3 Basophils # (Auto) 0.0 X10'3 CBC Comment Prothrombin Time 10.3 SECONDS INR International Normalized Ratio 1.0 INR Activated Partial Thromboplast Time 28 SECONDS Coagulation Comments Sodium Level 143 MMOL/L Potassium Level 3.8 MMOL/L Chloride Level 106 MMOL/L Carbon Dioxide Level 27.6 MMOL/L Anion Gap 9 Blood Urea Nitrogen 14 MG/DL Creatinine 0.78 MG/DL Estimated GFR/1.73 m2 75 ML/MIN BUN/Creatinine Ratio 17.9 Glucose Level 85 MG/DL Hemoglobin A1c 5.4 % Calcium Level 9.4 MG/DL C-Reactive Protein < 0.05 MG/DL Albumin 4.3 G/DL Triglycerides Level 54 MG/DL Cholesterol Level 228 MG/DL LDL Cholesterol 127 MG/DL HDL Cholesterol 77 MG/DL Cholesterol/HDL Ratio 3.0 Thyroid Stimulating Hormone (TSH) 7.35 ulU/ml Chemistry Comments Urine Specimen Description Cln catch midstream Urine Color Yellow Urine Clarity Clear Urine pH 7.0 Urine Specific Johnston <=1.005 Urine Protein Negative mg/dl Urine Glucose (UA) Negative mg/dl Urine Ketones Negative mg/dl Urine Occult Blood Negative Urine Nitrite Negative Urine Bilirubin Negative Urine Urobilinogen 0.2 E.U/dL Urine Leukocyte Esterase Negative Urine Culture Indicated Not ind Volume Urine Centrifuged 10 ml Urine Comment Erythrocyte Sedimentation Rate 6 MM/HR Test 02/10/25 05:01 White Blood Count 4.9 X10'3 Red Blood Count 4.68 X10'6 Hemoglobin 13.0 g/dl Hematocrit 38.7 % Mean Corpuscular Volume 82.7 FL Mean Corpuscular Hemoglobin 27.8 PG Mean Corpuscular Hemoglobin Concent 33.6 g/dL Red Cell Distribution Width 14.2 % Platelet Count 294 X10'3 Mean Platelet Volume 6.9 FL Neutrophils (%) (Auto) 49.3 % Lymphocytes (%) (Auto) 41.4 % Monocytes (%) (Auto) 6.7 % Eosinophils (%) (Auto) 1.8 % Basophils (%) (Auto) 0.8 % Neutrophils # (Auto) 2.4 X10'3 Lymphocytes # (Auto) 2.0 X10'3 Monocytes # (Auto) 0.3 X10'3 Eosinophils # (Auto) 0.1 X10'3 Basophils # (Auto) 0.0 X10'3 CBC Comment Sodium Level 139 MMOL/L Potassium Level 3.6 MMOL/L Chloride Level 103 MMOL/L Carbon Dioxide Level 28.0 MMOL/L Anion Gap 8 Blood Urea Nitrogen 14 MG/DL Creatinine 0.65 MG/DL Estimated GFR/1.73 m2 > 90 ML/MIN BUN/Creatinine Ratio 21.5 Glucose Level 86 MG/DL Calcium Level 9.1 MG/DL Total Bilirubin 0.4 MG/DL Aspartate Amino Transf (AST/SGOT) 18 U/L Alanine Aminotransferase (ALT/SGPT) 24 U/L Alkaline Phosphatase 64 IU/L Total Protein 6.8 G/DL Albumin 3.8 G/DL Globulin 3.0 G/DL Albumin/Globulin Ratio 1.3 Chemistry Comments Discharge Diagnosis\Comment: Right eye vision loss Suspect secondary to amaurosis fugax/TIA Hypertension Prediabetes Hypothyroidism Left Rios's palsy Operations\Procedures: None Consultants: None Complications: None Condition on DC: Stable Discharge Summary: Patient was admitted with the following HPI: 64-year-old female with past medical history of hypertension, prediabetes, hypothyroidism presented to the ER with a chief complaints of sudden-onset right-sided vision loss at around 12:30 p.m. on 02/08/2025. Patient was in her usual state of health but for the past three days she was having headache which she described as dull, constant, pressure-like over the frontal area of the head, not radiating, not associated with phonophobia, photophobia no nausea or vomitings. Yesterday she was trying to help for the daughter moved to a new home and during that process she felt hot extremely fatigued and at around 12:00 p.m. she had sudden onset of right-sided vision loss. She was able to see the left half of people faces but not the right hope. The same time she felt winded down tired and experienced drinks sensation in her ear. Due to these complaints she came to the ER yesterday but felt like the ER was busy and left. Then she slept and within 30 minutes to 1 hour her vision got improved. Currently she is having blurring of vision. Patient left against medical advice on 02/10/2025 *Problems/Diagnosis: (1) Amaurosis fugax Status: Acute (2) TIA (transient ischemic attack) Status: Acute (3) Blurry vision Status: Acute (4) History of Rios's palsy Status: Chronic (5) Hypertension Status: Chronic Total Time Spent on D/C: > 30 Minutes Date of Service: Feb 10, 2025 Billing Provider: RICHAR LEMON MD Common Visit Codes: [id number]/OBS DISCH DAY >30min Problem Qualifiers (1) Hypertension: Hypertension type: primary hypertension Qualified Codes: I10 - Essential (primary) hypertension GROVER LERNER, FRANCISCA Feb 10, 2025 10:51 RICHAR LEMON MD Feb 11, 2025 14:47
== END 2025-02-10 07:05 | disposition left against medical advice (07) | DRG 123 ==
LOC: ER 10:46 → ED HOLD 14:10 → ORTHO 4S 14:53
PROVIDERS: ADMIT Internal Medicine; ATTEND Internal Medicine
PROC: B3251ZZ Computerized Tomography (CT Scan) of Bilateral Common Carotid Arteries using Low Osmolar Contrast (ICD-10-PCS; principal; 2025-02-09)
PROC: B32G1ZZ Computerized Tomography (CT Scan) of Bilateral Vertebral Arteries using Low Osmolar Contrast (ICD-10-PCS; 2025-02-09)
PROC: B32R1ZZ Computerized Tomography (CT Scan) of Intracranial Arteries using Low Osmolar Contrast (ICD-10-PCS; 2025-02-09)
PROC: B3281ZZ Computerized Tomography (CT Scan) of Bilateral Internal Carotid Arteries using Low Osmolar Contrast (ICD-10-PCS; 2025-02-09)
DX: G45.3 Amaurosis fugax (principal); G45.9 Transient cerebral ischemic attack, unspecified; E03.9 Hypothyroidism, unspecified; I10 Essential (primary) hypertension; F41.9 Anxiety disorder, unspecified; R73.03 Prediabetes; Z53.29 Procedure and treatment not carried out because of patient's decision for other reasons; G51.0 Bell's palsy; E66.9 Obesity, unspecified; Z98.51 Tubal ligation status; Z80.3 Family history of malignant neoplasm of breast; Z80.42 Family history of malignant neoplasm of prostate; Z87.891 Personal history of nicotine dependence; Z68.22 Body mass index [BMI] 22.0-22.9, adult
CPT/HCPCS: 36415; 70450; 70496; 70498; 70551; 71045; 80048; 80053; 80061; 81003; 82948; 83036; 84443; 85025; 85610; 85651; 85730; 86140; 87081; 93005; 97161; 97530; 99285; G0378; J7040; Q9967